=== PATIENT | female | born 1950 | race African-American/Black ===

== ENCOUNTER 2020-07-20 09:36 | Inpatient (IN) ==
[2020-07-20] MEDS ORDERED: DEXAMETHASONE 4 MG/1 ML VIAL IV STA (10:08)
[2020-07-20] MEDS ORDERED: CETIRIZINE 10 MG TABLET PO STA (10:08)
[2020-07-20] MEDS ORDERED: FAMOTIDINE 20 MG/2 ML VIAL IV STA (10:32)
[2020-07-20] MEDS ORDERED: SODIUM CHLORIDE 0.9% 1,000 ML IV STA (10:33)
[2020-07-20 10:51] LABS: Basophils % 0.3 % (0.0-0.8); Eosinophils % 0.3 % (0.00-10.9); Hematocrit 32.7 VOL% (35.7-47.0); Hemoglobin 10.6 GM/DL (12.0-16.0); Immature Granulocytes % 0.7 %; Immature Granulocytes Absolute 0.07 #; Lymphocytes # 0.8 10*3/uL (1.4-4.0); Lymphocytes % 7.3 % (21.3-54.2); Mean Corpuscular HGB Conc 32.4 GM/DL (32-36); Mean Corpuscular Volume 85.2 FL (87-102); Mean Platelet Volume 9.9 FL (9.6-12.0); Monocytes % 4.5 % (1.7-12.7); Neutrophils % 86.9 % (38.7-73.9); Platelet Count 175 T/CUMM (130-400); Red Blood Count 3.84 MC/CUMM (3.8-5.5); Red Cell Distribution Width 14.6 % (9.3-17.3); White Blood Count 10.4 T/CUMM (4-12)
[2020-07-20 11:08] LABS: Albumin 3.3 G/DL (3.4-5.0); Bilirubin,Total 0.4 MG/DL (0.2-1.0); Calcium 8.9 MG/DL (8.5-10.1); Osmolality,Calculated 283.5 MOS/KG (273-304); Total Protein 7.6 G/DL (6.4-8.3)
[2020-07-20 11:09] LABS: Ferritin 117.1 ng/ml (8-252)
[2020-07-20] MEDS ORDERED: NITROGLYCERIN 2% OINT 1 INCH/GM PACK TOP STA (12:41)
[2020-07-20] MEDS ORDERED: FUROSEMIDE 40 MG/4 ML VIAL IV STA (12:41)
[2020-07-20] MEDS ORDERED: ALBUTEROL 2.5 MG/3 ML NEB RESP TX STA (12:41)
[2020-07-20] MEDS ORDERED: hydrALAZINE 20 MG/1 ML VIAL IV ONE (14:12)
[2020-07-20] MEDS ORDERED: GLUCAGON 1 MG VIAL IM PRN (15:10)
[2020-07-20] MEDS ORDERED: ONDANSETRON 4 MG/2 ML VIAL IV PRN (15:10)
[2020-07-20] MEDS ORDERED: ACETAMINOPHEN 325 MG TABLET PO PRN (15:10)
[2020-07-20] MEDS ORDERED: hydrALAZINE 20 MG/1 ML VIAL IV PRN (15:10)
[2020-07-20] MEDS ORDERED: DEXTROSE 50% 25 GM/50 ML VIAL IV PRN (15:10)
[2020-07-20] MEDS ORDERED: AZITHROMYCIN INJ 500 MG in SODIUM CHLORIDE 0.9% 250 ML IV SCH (16:00)
[2020-07-20] MEDS: hydroCHLOROthiazide 12.5 MG CAPSULE PO SCH (16:05)
[2020-07-20] MEDS: LOSARTAN 50 MG TABLET PO SCH (16:05)
[2020-07-20] MEDS: cefTRIAXone 1,000 MG in SYRINGE 1 EACH IV SCH (16:06)
[2020-07-20] MEDS ORDERED: MORPHINE 4 MG/1 ML VIAL IV PRN (16:13)
[2020-07-20 16:16] LABS: ABG Base Excess 5.5 MMOL/L (-2.5-2.5); ABG Oxygen Saturation 96.4 % (95-100); ABG PCO2 43.8 MM HG (35-48); ABG PH 7.454 (7.35-7.45); ABG PO2 89.4 MM HG (80-95); ABG TCO2 31.4 MMOL/L (23-27)
[2020-07-20] MEDS: ZINC SULFATE 220 MG CAPSULE PO SCH (17:21)
[2020-07-20 17:45] LABS: Apearance,Urine CLEAR (Clear); Bilirubin,Urine Negative (Negative); Blood, Urine Negative (Negative); Glucose,Urine (UA) Negative (Negative); Ketones,Urine Negative (Negative); Nitrite,Urine Negative (Negative); Protein,Urine Negative; RBC,Urine 2 /HPF (0-4); Urine Color Colorless (Yellow); Urine Specific Gravity 1.011 (1.001-1.035); Urine Urobilinogen < 2.0 EU/DL (0.2-1.0)
[2020-07-20] MEDS: guaiFENesin/DM ER 600-30 MG TABLET PO SCH (21:06)
[2020-07-20] MEDS: ENOXAPARIN 40 MG/0.4 ML SYRINGE SUBCUT SCH (21:06)
[2020-07-20] MEDS: ASCORBIC ACID 500 MG TABLET PO SCH (21:06)
[2020-07-20] MEDS: DOCUSATE SODIUM 100 MG CAPSULE PO SCH (21:06)
[2020-07-21 06:02] LABS: Basophils % 0.1 % (0.0-0.8); Hematocrit 30.5 VOL% (35.7-47.0); Hemoglobin 9.7 GM/DL (12.0-16.0); Immature Granulocytes % 0.4 %; Immature Granulocytes Absolute 0.04 #; Lymphocytes # 1.2 10*3/uL (1.4-4.0); Lymphocytes % 12.3 % (21.3-54.2); Mean Corpuscular HGB Conc 31.8 GM/DL (32-36); Mean Corpuscular Volume 86.4 FL (87-102); Mean Platelet Volume 10.4 FL (9.6-12.0); Monocytes % 8.1 % (1.7-12.7); Neutrophils % 79.1 % (38.7-73.9); Platelet Count 176 T/CUMM (130-400); Red Blood Count 3.53 MC/CUMM (3.8-5.5); White Blood Count 9.4 T/CUMM (4-12)
[2020-07-21 06:51] LABS: Risk Ratio 3.22; Thyroid Stimulating Hormone 0.485 uIU/ml (0.358-3.74); VLDL CHOLESTEROL 22.8 MG/DL
[2020-07-21 06:52] LABS: Bilirubin,Total 1.6 MG/DL (0.2-1.0); Calcium 8.6 MG/DL (8.5-10.1); Osmolality,Calculated 287.1 MOS/KG (273-304); Total Protein 6.8 G/DL (6.4-8.3)
[2020-07-21] MEDS ORDERED: PANTOPRAZOLE 40 MG TABLET PO SCH (09:00)
[2020-07-21] MEDS: hydroCHLOROthiazide 12.5 MG CAPSULE PO SCH (09:05)
[2020-07-21] MEDS: LOSARTAN 50 MG TABLET PO SCH (09:06)
[2020-07-21] MEDS: ZINC SULFATE 220 MG CAPSULE PO SCH (09:06)
[2020-07-21] MEDS: guaiFENesin/DM ER 600-30 MG TABLET PO SCH ×2 (09:06→21:11)
[2020-07-21] MEDS: ASPIRIN EC 81 MG TABLET PO SCH (09:06)
[2020-07-21] MEDS: ASCORBIC ACID 500 MG TABLET PO SCH ×2 (09:06→21:11)
[2020-07-21] MEDS: DOCUSATE SODIUM 100 MG CAPSULE PO SCH ×2 (09:06→21:12)
[2020-07-21] MEDS: AZITHROMYCIN 250 MG TABLET PO SCH (09:06)
[2020-07-21] MEDS: FUROSEMIDE 40 MG/4 ML VIAL IV SCH ×2 (09:07→18:02)
[2020-07-21] MEDS: cefTRIAXone 1,000 MG in SYRINGE 1 EACH IV SCH (09:07)
[2020-07-21] MEDS: carvediloL 6.25 MG TABLET PO SCH ×2 (09:09→20:55)
[2020-07-21] MEDS ORDERED: DEXTROSE 50% 25 GM/50 ML VIAL IV PRN (11:14)
[2020-07-21] MEDS ORDERED: GLUCAGON 1 MG VIAL IM PRN (11:14)
[2020-07-21] MEDS: INSULIN REGULAR 100 UNIT/ML SUBCUT SCH ×3 (13:50→20:59)
[2020-07-21] MEDS: ATORVASTATIN 20 MG TABLET PO SCH (21:12)
[2020-07-21] MEDS: ENOXAPARIN 40 MG/0.4 ML SYRINGE SUBCUT SCH (21:12)
[2020-07-22 05:39] LABS: Basophils % 0.3 % (0.0-0.8); Eosinophils # 0.1 10*3/uL (0.0-0.87); Eosinophils % 1.5 % (0.00-10.9); Hematocrit 32.5 VOL% (35.7-47.0); Hemoglobin 10.1 GM/DL (12.0-16.0); Immature Granulocytes % 0.4 %; Immature Granulocytes Absolute 0.04 #; Lymphocytes % 22.1 % (21.3-54.2); Mean Corpuscular HGB Conc 31.1 GM/DL (32-36); Mean Corpuscular Volume 87.1 FL (87-102); Mean Platelet Volume 10.2 FL (9.6-12.0); Monocytes % 7.4 % (1.7-12.7); Neutrophils % 68.3 % (38.7-73.9); Platelet Count 182 T/CUMM (130-400); Red Blood Count 3.73 MC/CUMM (3.8-5.5); Red Cell Distribution Width 15.2 % (9.3-17.3); White Blood Count 8.9 T/CUMM (4-12)
[2020-07-22 06:14] LABS: Albumin 3.1 G/DL (3.4-5.0); Bilirubin,Total 0.6 MG/DL (0.2-1.0); Calcium 9.1 MG/DL (8.5-10.1); Osmolality,Calculated 288.1 MOS/KG (273-304)
[2020-07-22] MEDS: INSULIN REGULAR 100 UNIT/ML SUBCUT SCH ×4 (07:41→20:55)
[2020-07-22] MEDS: guaiFENesin/DM ER 600-30 MG TABLET PO SCH ×2 (08:25→20:55)
[2020-07-22] MEDS: AZITHROMYCIN 250 MG TABLET PO SCH (08:26)
[2020-07-22] MEDS: DOCUSATE SODIUM 100 MG CAPSULE PO SCH ×2 (08:26→20:55)
[2020-07-22] MEDS: carvediloL 6.25 MG TABLET PO SCH ×2 (08:26→20:55)
[2020-07-22] MEDS: hydroCHLOROthiazide 12.5 MG CAPSULE PO SCH (08:26)
[2020-07-22] MEDS: LOSARTAN 50 MG TABLET PO SCH (08:26)
[2020-07-22] MEDS: ZINC SULFATE 220 MG CAPSULE PO SCH (08:26)
[2020-07-22] MEDS: FUROSEMIDE 40 MG/4 ML VIAL IV SCH (08:27)
[2020-07-22] MEDS: cefTRIAXone 1,000 MG in SYRINGE 1 EACH IV SCH (08:27)
[2020-07-22] MEDS: ASCORBIC ACID 500 MG TABLET PO SCH ×2 (08:27→20:55)
[2020-07-22] MEDS: ASPIRIN EC 81 MG TABLET PO SCH (08:27)
[2020-07-22] MEDS: FUROSEMIDE 20 MG TABLET PO SCH (16:25)
[2020-07-22] MEDS: ENOXAPARIN 40 MG/0.4 ML SYRINGE SUBCUT SCH (20:55)
[2020-07-22] MEDS: ATORVASTATIN 20 MG TABLET PO SCH (20:55)
[2020-07-23 03:56] LABS: Basophils % 0.5 % (0.0-0.8); Eosinophils # 0.2 10*3/uL (0.0-0.87); Eosinophils % 2.7 % (0.00-10.9); Hematocrit 31.7 VOL% (35.7-47.0); Immature Granulocytes % 0.4 %; Immature Granulocytes Absolute 0.03 #; Lymphocytes % 24.4 % (21.3-54.2); Mean Corpuscular HGB Conc 31.5 GM/DL (32-36); Mean Corpuscular Volume 87.3 FL (87-102); Mean Platelet Volume 10.3 FL (9.6-12.0); Monocytes % 8.5 % (1.7-12.7); Neutrophils % 63.5 % (38.7-73.9); Platelet Count 186 T/CUMM (130-400); Red Blood Count 3.63 MC/CUMM (3.8-5.5); Red Cell Distribution Width 14.9 % (9.3-17.3)
[2020-07-23 04:18] LABS: Calcium 9.4 MG/DL (8.5-10.1); Osmolality,Calculated 281.4 MOS/KG (273-304)
[2020-07-23] MEDS: INSULIN REGULAR 100 UNIT/ML SUBCUT SCH ×2 (08:20→11:51)
[2020-07-23] MEDS: guaiFENesin/DM ER 600-30 MG TABLET PO SCH (08:24)
[2020-07-23] MEDS: LOSARTAN 50 MG TABLET PO SCH (08:24)
[2020-07-23] MEDS: hydroCHLOROthiazide 12.5 MG CAPSULE PO SCH (08:24)
[2020-07-23] MEDS: ASCORBIC ACID 500 MG TABLET PO SCH (08:24)
[2020-07-23] MEDS: FUROSEMIDE 20 MG TABLET PO SCH (08:24)
[2020-07-23] MEDS: ZINC SULFATE 220 MG CAPSULE PO SCH (08:25)
[2020-07-23] MEDS: DOCUSATE SODIUM 100 MG CAPSULE PO SCH (08:25)
[2020-07-23] MEDS: cefTRIAXone 1,000 MG in SYRINGE 1 EACH IV SCH ×2 (08:25→10:30)
[2020-07-23] MEDS: AZITHROMYCIN 250 MG TABLET PO SCH (08:25)
[2020-07-23] MEDS: ASPIRIN EC 81 MG TABLET PO SCH (08:25)
[2020-07-23] MEDS: carvediloL 6.25 MG TABLET PO SCH (09:03)
[2020-07-23] MEDS ORDERED: POTASSIUM CHLORIDE 20 MEQ TABLET PO ONE (10:30)
[2020-07-23 12:24] VITALS: BP 158/82
== END 2020-07-23 14:38 | disposition home or self-care (01) | DRG 291 ==
LOC: N.ED 09:36 → N.EDINP 13:34 → N.2E 13:56
PROVIDERS: ADMIT Internal Medicine; ATTEND Internal Medicine